=== PATIENT | female | born 1965 | race Caucasian/White ===

== ENCOUNTER 2021-03-05 10:20 | Emergency (ER) | payer MEDICARE, OTHER | END 2021-03-05 11:23 | disposition home or self-care (01) | LOC: ER1 10:20 | DX: S90.451A Superficial foreign body, right great toe, initial encounter (principal); E11.9 Type 2 diabetes mellitus without complications; I10 Essential (primary) hypertension; E78.5 Hyperlipidemia, unspecified; M10.9 Gout, unspecified; W45.8XXA Other foreign body or object entering through skin, initial encounter | CPT/HCPCS: 10120; 73630; 99283 ==

== ENCOUNTER → 2021-05-27 | Outpatient (CLI) | payer MEDICARE | LOC: MAMO 04-14 14:30 | DX: Z12.31 Encounter for screening mammogram for malignant neoplasm of breast (principal) | CPT/HCPCS: 77063; 77067 ==